=== PATIENT | male | born 1960 | race Caucasian/White ===

== ENCOUNTER 2017-11-02 20:44 | Inpatient (IN) | payer OTHER, MEDICAID ==
[~2017-11-02] VITALS: Ht 175.3 cm; Wt 122.5 kg
[2017-11-02] MEDS ORDERED: ZOLPIDEM TARTRATE 10 MG TABLET PO PRN (22:45)
[2017-11-03 00:20] VITALS: BP 121/80
[2017-11-03] MEDS: LORazepam 2 MG TABLET PO PRN (06:41)
[2017-11-03] MEDS: HALOPERIDOL 5 MG TABLET PO PRN (06:41)
[2017-11-03] MEDS ORDERED: LOPERAMIDE HCL 2 MG CAPSULE PO PRN (07:30)
[2017-11-03] MEDS ORDERED: CloNIDine HCL 0.1 MG TABLET PO PRN (07:30)
[2017-11-03] MEDS ORDERED: MAG HYDROX/AL HYDROX/SIMETH ES 30 ML SUSPENSION UDCUP PO PRN (07:30)
[2017-11-03] MEDS ORDERED: ACETAMINOPHEN 325 MG TABLET PO PRN (07:30)
[2017-11-03] MEDS ORDERED: ONDANSETRON HCL 4 MG TABLET PO PRN (07:30)
[2017-11-03] MEDS ORDERED: BACITRACIN 28.4 GM OINTMENT TP PRN (07:30)
[2017-11-03] MEDS ORDERED: BENZOCAINE/MENTHOL LOZENGE MM PRN (07:30)
[2017-11-03] MEDS ORDERED: PETROLATUM,WHITE 71 GM JELLY TP PRN (07:30)
[2017-11-03] MEDS ORDERED: IBUPROFEN 600 MG TABLET PO PRN (07:30)
[2017-11-03] MEDS ORDERED: ALBUTEROL SULFATE HFA 90 MCG/PUFF 8 GM INHALER IH PRN (07:30)
[2017-11-03] MEDS ORDERED: MAGNESIUM HYDROXIDE SUSPENSION 30 ML UDCUP PO PRN (07:30)
[2017-11-03 08:11] VITALS: BP 121/77
[2017-11-03 08:26] LABS: BASOPHILS % (AUTO) 0.4 % (0.0-2.0); HEMATOCRIT 39.5 % (41-53); HEMOGLOBIN 13.5 g/dL (13.5-17.5); LYMPHOCYTES # (AUTO) 1.9 K/uL (1.0-4.8); LYMPHOCYTES % (AUTO) 29.6 % (22.0-44.0); MEAN CORPUSCULAR HEMOGLOBIN 30.8 pg (26.0-34.0); MEAN CORPUSCULAR HGB CONC 34.3 G/dL (31.0-37.0); MEAN CORPUSCULAR VOLUME 90 fL (80-100); MONOCYTES # (AUTO) 0.6 K/uL (0.1-1.0); MONOCYTES % (AUTO) 9.4 % (2.0-9.0); NEUTROPHILS # (AUTO) 3.6 K/uL (1.8-7.7); NEUTROPHILS % (AUTO) 57.6 % (40.0-70.0); PLATELET COUNT (AUTO) 282 K/uL (150-450); RED BLOOD CELL COUNT(AUTO) 4.39 MIL/uL (4.50-5.90); RED CELL DISTRIBUTION WIDTH 13.7 % (11.5-14.5)
[2017-11-03 08:43] LABS: HEMOGLOBIN A1C 6.1 % (4.5-6.2)
[2017-11-03] MEDS: OMEPRAZOLE 20 MG CAPSULE PO SCH (08:49)
[2017-11-03] MEDS: DOCUSATE SODIUM 100 MG CAPSULE PO SCH (08:50)
[2017-11-03] MEDS: NICOTINE 21 MG/24 HOUR PATCH TD SCH (08:51)
[2017-11-03 09:01] LABS: ALANINE AMINOTRANSFERASE 66 U/L (12-78); ALBUMIN 2.9 g/dL (3.4-5.0); ALKALINE PHOSPHATASE 57 U/L (46-116); ANION GAP 1 mmol/L (8-16); BILIRUBIN,TOTAL 0.2 mg/dL (0.1-1.0); CALCIUM, TOTAL 8.5 mg/dL (8.8-10.5); CARBON DIOXIDE 31 mmol/L (22-29); CHLORIDE 107 mmol/L (98-107); CHOL/HDL RATIO 6.6 (4.2-7.3); CHOLESTEROL 165 mg/dL (131-200); CREATININE 0.85 mg/dL (0.60-1.30); GLOMERULAR FILTR. RATE CALC > 60 mL/min (>60); GLUCOSE,RANDOM 106 mg/dL (70-110); HDL CHOLESTEROL 25 mg/dL (40-60); LDL CHOL (CALC.) 87 mg/dL (0-130); SODIUM SERUM 139 mmol/L (136-145); TOTAL PROTEIN, SERUM 6.5 g/dL (6.4-8.2); TRIGLYCERIDES 267 mg/dL (15-150); UREA NITROGEN, BLOOD 13 mg/dL (7-18)
[2017-11-03 10:05] LABS: ASPARTATE AMINOTRANSFERASE 44 U/L (15-37); FREE T4 (FREE THYROXINE) 0.89 ng/dL (0.76-1.46); THYROID STIMULATING HORMONE 1.86 uIU/mL (0.36-3.74)
[2017-11-03] MEDS: RisperiDONE 2 MG TABLET PO SCH (20:11)
[2017-11-04 00:46] VITALS: BP 129/77
[2017-11-04 08:30] VITALS: BP 134/64
[2017-11-04] MEDS: OMEGA-3/DHA/EPA/FISH OIL 1,000 MG CAPSULE PO SCH (10:00)
[2017-11-04] MEDS ORDERED: MAGNESIUM SULFATE 454 GM BOX TP PRN (10:00)
[2017-11-04] MEDS: NICOTINE 21 MG/24 HOUR PATCH TD SCH (10:00)
[2017-11-04] MEDS: RisperiDONE 2 MG TABLET PO SCH (10:59)
[2017-11-04] MEDS: DOCUSATE SODIUM 100 MG CAPSULE PO SCH (10:59)
[2017-11-04] MEDS: OMEPRAZOLE 20 MG CAPSULE PO SCH (10:59)
[2017-11-04 15:50] VITALS: BP 122/74
[2017-11-04 16:26] VITALS: BP 122/74
[2017-11-04] MEDS: DIVALPROEX SODIUM 500 MG DR TABLET PO SCH (16:31)
[2017-11-04] MEDS: RisperiDONE 3 MG TABLET PO SCH (16:31)
[2017-11-05 01:49] VITALS: BP 116/74
[2017-11-05] MEDS: NICOTINE 21 MG/24 HOUR PATCH TD SCH (09:00)
[2017-11-05] MEDS: OMEGA-3/DHA/EPA/FISH OIL 1,000 MG CAPSULE PO SCH (09:09)
[2017-11-05] MEDS: DOCUSATE SODIUM 100 MG CAPSULE PO SCH (09:09)
[2017-11-05] MEDS: DIVALPROEX SODIUM 500 MG DR TABLET PO SCH ×2 (09:09→17:10)
[2017-11-05] MEDS: CHOLECALCIFEROL (VIT D3) 1,000 UNITS TABLET PO SCH (09:10)
[2017-11-05] MEDS: RisperiDONE 3 MG TABLET PO SCH ×2 (09:10→17:10)
[2017-11-05] MEDS: FUROSEMIDE 20 MG TABLET PO SCH (09:10)
[2017-11-05] MEDS: OMEPRAZOLE 20 MG CAPSULE PO SCH (09:10)
[2017-11-05] MEDS: TERBINAFINE HCL 1% 30 GM CREAM TP SCH (09:11)
[2017-11-05 16:00] VITALS: BP 142/80
[2017-11-05] MEDS: LORazepam 2 MG TABLET PO PRN (20:49)
[2017-11-06 00:05] VITALS: BP 124/68
[2017-11-06] MEDS: DIVALPROEX SODIUM 500 MG DR TABLET PO SCH ×2 (08:25→17:07)
[2017-11-06] MEDS: FUROSEMIDE 20 MG TABLET PO SCH (08:25)
[2017-11-06] MEDS: DOCUSATE SODIUM 100 MG CAPSULE PO SCH (08:25)
[2017-11-06] MEDS: RisperiDONE 3 MG TABLET PO SCH ×2 (08:25→17:07)
[2017-11-06] MEDS: CHOLECALCIFEROL (VIT D3) 1,000 UNITS TABLET PO SCH (08:25)
[2017-11-06] MEDS: OMEGA-3/DHA/EPA/FISH OIL 1,000 MG CAPSULE PO SCH (08:25)
[2017-11-06] MEDS: OMEPRAZOLE 20 MG CAPSULE PO SCH (08:25)
[2017-11-06] MEDS: TERBINAFINE HCL 1% 30 GM CREAM TP SCH (09:00)
[2017-11-06] MEDS: NICOTINE 21 MG/24 HOUR PATCH TD SCH (09:00)
[2017-11-06 09:02] VITALS: BP 119/64
[2017-11-06 16:50] VITALS: BP 120/67
[2017-11-07] MEDS: RisperiDONE 3 MG TABLET PO SCH ×2 (09:00→17:00)
[2017-11-07] MEDS: NICOTINE 21 MG/24 HOUR PATCH TD SCH (09:00)
[2017-11-07] MEDS: FUROSEMIDE 20 MG TABLET PO SCH (09:00)
[2017-11-07] MEDS: TERBINAFINE HCL 1% 30 GM CREAM TP SCH (09:00)
[2017-11-07] MEDS: OMEPRAZOLE 20 MG CAPSULE PO SCH (09:00)
[2017-11-07] MEDS: CHOLECALCIFEROL (VIT D3) 1,000 UNITS TABLET PO SCH (09:00)
[2017-11-07] MEDS: DIVALPROEX SODIUM 500 MG DR TABLET PO SCH ×2 (09:00→17:00)
[2017-11-07] MEDS: OMEGA-3/DHA/EPA/FISH OIL 1,000 MG CAPSULE PO SCH (09:00)
[2017-11-07] MEDS: DOCUSATE SODIUM 100 MG CAPSULE PO SCH (09:00)
[2017-11-07 09:10] VITALS: BP 101/68
[2017-11-07 19:10] VITALS: BP 117/55
[2017-11-08 06:23] VITALS: BP 136/79
[2017-11-08] MEDS: FUROSEMIDE 20 MG TABLET PO SCH (09:00)
[2017-11-08] MEDS: DIVALPROEX SODIUM 500 MG DR TABLET PO SCH ×2 (09:00→16:55)
[2017-11-08] MEDS: CHOLECALCIFEROL (VIT D3) 1,000 UNITS TABLET PO SCH (09:00)
[2017-11-08] MEDS: OMEGA-3/DHA/EPA/FISH OIL 1,000 MG CAPSULE PO SCH (09:00)
[2017-11-08] MEDS: TERBINAFINE HCL 1% 30 GM CREAM TP SCH (09:00)
[2017-11-08] MEDS: OMEPRAZOLE 20 MG CAPSULE PO SCH (09:00)
[2017-11-08] MEDS: RisperiDONE 3 MG TABLET PO SCH ×2 (09:00→16:55)
[2017-11-08] MEDS: NICOTINE 21 MG/24 HOUR PATCH TD SCH (11:51)
[2017-11-08] MEDS: DOCUSATE SODIUM 100 MG CAPSULE PO SCH (11:55)
[2017-11-08] MEDS: HALOPERIDOL 5 MG TABLET PO PRN (17:04)
[2017-11-08 17:51] VITALS: BP 132/64
[2017-11-09 03:50] VITALS: BP 133/72
[2017-11-09 08:42] VITALS: BP 115/87
[2017-11-09] MEDS: DOCUSATE SODIUM 100 MG CAPSULE PO SCH (09:01)
[2017-11-09] MEDS: FUROSEMIDE 20 MG TABLET PO SCH (09:01)
[2017-11-09] MEDS: OMEGA-3/DHA/EPA/FISH OIL 1,000 MG CAPSULE PO SCH (09:01)
[2017-11-09] MEDS: DIVALPROEX SODIUM 500 MG DR TABLET PO SCH ×2 (09:01→16:32)
[2017-11-09] MEDS: RisperiDONE 3 MG TABLET PO SCH ×2 (09:01→16:32)
[2017-11-09] MEDS: OMEPRAZOLE 20 MG CAPSULE PO SCH (09:01)
[2017-11-09] MEDS: CHOLECALCIFEROL (VIT D3) 1,000 UNITS TABLET PO SCH (09:01)
[2017-11-09] MEDS: TERBINAFINE HCL 1% 30 GM CREAM TP SCH (09:02)
[2017-11-09] MEDS: NICOTINE 21 MG/24 HOUR PATCH TD SCH (09:02)
[2017-11-09 16:40] VITALS: BP 132/87
[2017-11-10] MEDS: DIVALPROEX SODIUM 500 MG DR TABLET PO SCH ×2 (09:00→16:04)
[2017-11-10] MEDS: OMEGA-3/DHA/EPA/FISH OIL 1,000 MG CAPSULE PO SCH (09:00)
[2017-11-10] MEDS: OMEPRAZOLE 20 MG CAPSULE PO SCH (09:00)
[2017-11-10] MEDS: TERBINAFINE HCL 1% 30 GM CREAM TP SCH (09:00)
[2017-11-10] MEDS: FUROSEMIDE 20 MG TABLET PO SCH (09:00)
[2017-11-10] MEDS: DOCUSATE SODIUM 100 MG CAPSULE PO SCH (09:00)
[2017-11-10] MEDS: RisperiDONE 3 MG TABLET PO SCH ×2 (09:00→16:04)
[2017-11-10] MEDS: NICOTINE 21 MG/24 HOUR PATCH TD SCH (09:00)
[2017-11-10] MEDS: CHOLECALCIFEROL (VIT D3) 1,000 UNITS TABLET PO SCH (09:00)
[2017-11-11 01:45] VITALS: BP 129/80
[2017-11-11 08:05] VITALS: BP 127/70
[2017-11-11] MEDS: CHOLECALCIFEROL (VIT D3) 1,000 UNITS TABLET PO SCH (10:31)
[2017-11-11] MEDS: RisperiDONE 3 MG TABLET PO SCH ×2 (10:31→16:32)
[2017-11-11] MEDS: FUROSEMIDE 20 MG TABLET PO SCH (10:31)
[2017-11-11] MEDS: OMEGA-3/DHA/EPA/FISH OIL 1,000 MG CAPSULE PO SCH (10:31)
[2017-11-11] MEDS: OMEPRAZOLE 20 MG CAPSULE PO SCH (10:31)
[2017-11-11] MEDS: DIVALPROEX SODIUM 500 MG DR TABLET PO SCH ×2 (10:31→16:32)
[2017-11-11] MEDS: TERBINAFINE HCL 1% 30 GM CREAM TP SCH (10:33)
[2017-11-11] MEDS: MULTIVITAMINS, THERAPEUTIC TABLET PO SCH (10:33)
[2017-11-11 16:41] VITALS: BP 154/91
[2017-11-11 18:14] LABS: GLUCOMETER DEV NAME(LOC) 3EI B; GLUCOSE,POINT OF CARE 207 MG/DL (70-110)
[2017-11-12 08:05] VITALS: BP 137/81
[2017-11-12] MEDS: DIVALPROEX SODIUM 500 MG DR TABLET PO SCH ×2 (09:14→17:03)
[2017-11-12] MEDS: MULTIVITAMINS, THERAPEUTIC TABLET PO SCH (09:14)
[2017-11-12] MEDS: OMEPRAZOLE 20 MG CAPSULE PO SCH (09:14)
[2017-11-12] MEDS: RisperiDONE 3 MG TABLET PO SCH ×2 (09:14→17:03)
[2017-11-12] MEDS: FUROSEMIDE 20 MG TABLET PO SCH (09:14)
[2017-11-12] MEDS: CHOLECALCIFEROL (VIT D3) 1,000 UNITS TABLET PO SCH (09:14)
[2017-11-12] MEDS: TERBINAFINE HCL 1% 30 GM CREAM TP SCH (09:15)
[2017-11-12] MEDS: OMEGA-3/DHA/EPA/FISH OIL 1,000 MG CAPSULE PO SCH (09:15)
[2017-11-12 17:02] VITALS: BP 122/76
[2017-11-13] MEDS: MULTIVITAMINS, THERAPEUTIC TABLET PO SCH (08:29)
[2017-11-13] MEDS: DIVALPROEX SODIUM 500 MG DR TABLET PO SCH ×3 (08:29→16:33)
[2017-11-13] MEDS: TERBINAFINE HCL 1% 30 GM CREAM TP SCH (08:29)
[2017-11-13] MEDS: RisperiDONE 3 MG TABLET PO SCH ×3 (08:29→16:33)
[2017-11-13] MEDS: OMEPRAZOLE 20 MG CAPSULE PO SCH (08:29)
[2017-11-13] MEDS: OMEGA-3/DHA/EPA/FISH OIL 1,000 MG CAPSULE PO SCH (08:29)
[2017-11-13] MEDS: CHOLECALCIFEROL (VIT D3) 1,000 UNITS TABLET PO SCH (08:29)
[2017-11-13] MEDS: FUROSEMIDE 20 MG TABLET PO SCH (08:29)
[2017-11-13 09:06] VITALS: BP 113/62
[2017-11-13] MEDS: LORazepam 2 MG TABLET PO PRN (23:03)
[2017-11-13] MEDS: HALOPERIDOL 5 MG TABLET PO PRN (23:03)
[2017-11-14 01:04] VITALS: BP 121/69
[2017-11-14 08:01] VITALS: BP 131/74
[2017-11-14] MEDS: OMEGA-3/DHA/EPA/FISH OIL 1,000 MG CAPSULE PO SCH (08:17)
[2017-11-14] MEDS: FUROSEMIDE 20 MG TABLET PO SCH (08:17)
[2017-11-14] MEDS: DIVALPROEX SODIUM 500 MG DR TABLET PO SCH ×2 (08:17→16:51)
[2017-11-14] MEDS: OMEPRAZOLE 20 MG CAPSULE PO SCH (08:18)
[2017-11-14] MEDS: MULTIVITAMINS, THERAPEUTIC TABLET PO SCH (08:18)
[2017-11-14] MEDS: CHOLECALCIFEROL (VIT D3) 1,000 UNITS TABLET PO SCH (08:18)
[2017-11-14] MEDS: RisperiDONE 3 MG TABLET PO SCH ×2 (08:18→16:51)
[2017-11-14] MEDS ORDERED: DIVA-78 PO (10:46)
[2017-11-14] MEDS ORDERED: RISP3 PO (10:48)
[2017-11-14] MEDS ORDERED: MULT-1239 PO (10:54)
[2017-11-14] MEDS ORDERED: FURO20 PO (10:54)
[2017-11-14] MEDS ORDERED: OMEP20 PO (10:55)
[2017-11-14] MEDS ORDERED: OMEG-50 PO (10:55)
[2017-11-14] MEDS ORDERED: TERB30CR TP (10:56)
[2017-11-14] MEDS: TERBINAFINE HCL 1% 30 GM CREAM TP SCH (12:21)
[2017-11-14 16:52] VITALS: BP 128/86
== END 2017-11-14 19:30 | disposition home or self-care (01) | DRG 885 ==
LOC: B2X 22:36 → B2S 11-03 17:20 → 3EI 11-04 16:59 → 3EX 11-13 14:33
PROVIDERS: ADMIT Psychiatry & Neurology Psychiatry; ATTEND Psychiatry & Neurology Psychiatry
DX: F25.1 Schizoaffective disorder, depressive type (principal); R45.851 Suicidal ideations; E66.9 Obesity, unspecified; E78.1 Pure hyperglyceridemia; E83.51 Hypocalcemia; F17.200 Nicotine dependence, unspecified, uncomplicated; G47.00 Insomnia, unspecified; J44.9 Chronic obstructive pulmonary disease, unspecified; K21.9 Gastro-esophageal reflux disease without esophagitis; K59.00 Constipation, unspecified; S90.821A Blister (nonthermal), right foot, initial encounter; F41.9 Anxiety disorder, unspecified; S90.822A Blister (nonthermal), left foot, initial encounter; Z91.14 Patient's other noncompliance with medication regimen; Z91.19 Patient's noncompliance with other medical treatment and regimen; Z56.0 Unemployment, unspecified; Z79.899 Other long term (current) drug therapy
CPT/HCPCS: 82306; 83036; 84439; 84443

== ENCOUNTER 2017-11-27 22:45 | Inpatient (IN) | payer OTHER, MEDICAID ==
[~2017-11-27] VITALS: Ht 175.3 cm; Wt 109.1 kg
[~2017-11-27 22:45] MED LIST: DIVA-78 PO; FURO20 PO; MULT-1239 PO; OMEG-50 PO; OMEP20 PO; RISP3 PO; TERB30CR TP
[2017-11-27 23:19] LABS: BASOPHILS % (AUTO) 0.3 % (0.0-2.0); EOSINOPHILS % (AUTO) 0.5 % (1.0-6.0); HEMATOCRIT 45.7 % (41-53); HEMOGLOBIN 15.7 g/dL (13.5-17.5); LYMPHOCYTES # (AUTO) 1.4 K/uL (1.0-4.8); LYMPHOCYTES % (AUTO) 11.8 % (22.0-44.0); MEAN CORPUSCULAR HEMOGLOBIN 30.3 pg (26.0-34.0); MEAN CORPUSCULAR HGB CONC 34.4 G/dL (31.0-37.0); MEAN CORPUSCULAR VOLUME 88 fL (80-100); MONOCYTES # (AUTO) 0.8 K/uL (0.1-1.0); MONOCYTES % (AUTO) 6.7 % (2.0-9.0); NEUTROPHILS # (AUTO) 9.4 K/uL (1.8-7.7); NEUTROPHILS % (AUTO) 80.7 % (40.0-70.0); PLATELET COUNT (AUTO) 346 K/uL (150-450); RED BLOOD CELL COUNT(AUTO) 5.17 MIL/uL (4.50-5.90); RED CELL DISTRIBUTION WIDTH 13.5 % (11.5-14.5)
[2017-11-27 23:23] LABS: ANION GAP 15 mmol/L (8-16); CALCIUM, TOTAL 9.7 mg/dL (8.8-10.5); CARBON DIOXIDE 22 mmol/L (22-29); CHLORIDE 107 mmol/L (98-107); CREATININE 1.19 mg/dL (0.60-1.30); GLOMERULAR FILTR. RATE CALC > 60 mL/min (>60); GLUCOSE,RANDOM 111 mg/dL (70-110); POTASSIUM 3.7 mmol/L (3.5-5.1); SODIUM SERUM 144 mmol/L (136-145); UREA NITROGEN, BLOOD 27 mg/dL (7-18)
[2017-11-27 23:29] LABS: ALANINE AMINOTRANSFERASE 47 U/L (12-78); ALBUMIN 3.9 g/dL (3.4-5.0); ALKALINE PHOSPHATASE 63 U/L (46-116); ASPARTATE AMINOTRANSFERASE 35 U/L (15-37); BILIRUBIN,TOTAL 0.8 mg/dL (0.1-1.0); TOTAL PROTEIN, SERUM 8.4 g/dL (6.4-8.2); VALPROIC ACID 4 mcg/mL (50-100)
[2017-11-28 03:16] VITALS: BP 119/72
[2017-11-28 09:14] VITALS: BP 134/72
[2017-11-28] MEDS ORDERED: MAG HYDROX/AL HYDROX/SIMETH ES 30 ML SUSPENSION UDCUP PO PRN (20:00)
[2017-11-28] MEDS ORDERED: PETROLATUM,WHITE 71 GM JELLY TP PRN (20:00)
[2017-11-28] MEDS ORDERED: BENZOCAINE/MENTHOL LOZENGE MM PRN (20:00)
[2017-11-28] MEDS ORDERED: MAGNESIUM HYDROXIDE SUSPENSION 30 ML UDCUP PO PRN (20:00)
[2017-11-28] MEDS ORDERED: ACETAMINOPHEN 325 MG TABLET PO PRN (20:00)
[2017-11-28] MEDS ORDERED: BACITRACIN 28.4 GM OINTMENT TP PRN (20:00)
[2017-11-28] MEDS ORDERED: IBUPROFEN 600 MG TABLET PO PRN (20:00)
[2017-11-28] MEDS ORDERED: ONDANSETRON HCL 4 MG TABLET PO PRN (20:00)
[2017-11-28] MEDS ORDERED: ALBUTEROL SULFATE HFA 90 MCG/PUFF 8 GM INHALER IH PRN (20:00)
[2017-11-28] MEDS ORDERED: CloNIDine HCL 0.1 MG TABLET PO PRN (20:00)
[2017-11-28] MEDS ORDERED: LOPERAMIDE HCL 2 MG CAPSULE PO PRN (20:00)
[2017-11-29 00:45] VITALS: BP 126/81
[2017-11-29 08:30] VITALS: BP 137/97
[2017-11-29] MEDS: OMEPRAZOLE 20 MG CAPSULE PO SCH (08:57)
[2017-11-29] MEDS: DOCUSATE SODIUM 100 MG CAPSULE PO SCH (08:57)
[2017-11-29] MEDS: RisperiDONE 3 MG TABLET PO SCH ×2 (08:57→16:22)
[2017-11-29] MEDS: FUROSEMIDE 20 MG TABLET PO SCH (08:57)
[2017-11-29] MEDS: DIVALPROEX SODIUM 500 MG DR TABLET PO SCH ×2 (08:57→16:22)
[2017-11-29] MEDS: OMEGA-3/DHA/EPA/FISH OIL 1,000 MG CAPSULE PO SCH (08:57)
[2017-11-29] MEDS: MULTIVITAMINS WITH MINERALS, THERAPEUTIC TABLET PO SCH (08:58)
[2017-11-29] MEDS ORDERED: TERBINAFINE HCL 1% 30 GM CREAM TP SCH (09:00)
[2017-11-29] MEDS: HALOPERIDOL 5 MG TABLET PO PRN (15:44)
[2017-11-29 16:14] VITALS: BP 144/70
[2017-11-30] MEDS: LORazepam 2 MG TABLET PO PRN (00:10)
[2017-11-30] MEDS: ZOLPIDEM TARTRATE 10 MG TABLET PO PRN (00:10)
[2017-11-30 06:32] LABS: BAND NEUTROPHILS % (MANUAL) 0 % (0-5)
[2017-11-30 06:45] LABS: HEMATOCRIT 43.5 % (41-53); HEMOGLOBIN 14.9 g/dL (13.5-17.5); MEAN CORPUSCULAR HEMOGLOBIN 30.2 pg (26.0-34.0); MEAN CORPUSCULAR HGB CONC 34.3 G/dL (31.0-37.0); MEAN CORPUSCULAR VOLUME 88 fL (80-100); PLATELET COUNT (AUTO) 277 K/uL (150-450); RED BLOOD CELL COUNT(AUTO) 4.95 MIL/uL (4.50-5.90); RED CELL DISTRIBUTION WIDTH 13.4 % (11.5-14.5)
[2017-11-30 07:05] LABS: ANION GAP 11 mmol/L (8-16); CALCIUM, TOTAL 9.4 mg/dL (8.8-10.5); CARBON DIOXIDE 27 mmol/L (22-29); CHLORIDE 106 mmol/L (98-107); CHOL/HDL RATIO 6.7 (4.2-7.3); CHOLESTEROL 161 mg/dL (131-200); CREATININE 1.13 mg/dL (0.60-1.30); GLOMERULAR FILTR. RATE CALC > 60 mL/min (>60); GLUCOSE,RANDOM 102 mg/dL (70-110); HDL CHOLESTEROL 24 mg/dL (40-60); LDL CHOL (CALC.) 102 mg/dL (0-130); PHOSPHORUS 4.5 mg/dL (2.5-4.9); POTASSIUM 3.5 mmol/L (3.5-5.1); SODIUM SERUM 144 mmol/L (136-145); TRIGLYCERIDES 177 mg/dL (15-150); UREA NITROGEN, BLOOD 26 mg/dL (7-18)
[2017-11-30 07:44] LABS: EOSINOPHILS % (MANUAL) 2 % (1-6); LYMPHOCYTES % (MANUAL) 7 % (22-44); MONOCYTES % (MANUAL) 4 % (2-9); SEGMENTED NEUTROPHILS % 87 % (40-70)
[2017-11-30] MEDS: DIVALPROEX SODIUM 500 MG DR TABLET PO SCH ×2 (08:17→16:14)
[2017-11-30] MEDS: FUROSEMIDE 20 MG TABLET PO SCH (08:17)
[2017-11-30] MEDS: OMEGA-3/DHA/EPA/FISH OIL 1,000 MG CAPSULE PO SCH (08:17)
[2017-11-30] MEDS: CHOLECALCIFEROL (VIT D3) 1,000 UNITS TABLET PO SCH (08:18)
[2017-11-30] MEDS: OMEPRAZOLE 20 MG CAPSULE PO SCH (08:18)
[2017-11-30] MEDS: DOCUSATE SODIUM 100 MG CAPSULE PO SCH (08:18)
[2017-11-30] MEDS: RisperiDONE 3 MG TABLET PO SCH ×2 (08:18→16:14)
[2017-11-30] MEDS: MULTIVITAMINS WITH MINERALS, THERAPEUTIC TABLET PO SCH (08:18)
[2017-11-30 08:38] VITALS: BP 152/97
[2017-11-30] MEDS ORDERED: LORazepam 2 MG/ML VIAL IM ONE (12:00)
[2017-11-30] MEDS ORDERED: HALOPERIDOL LACTATE 5 MG/ML VIAL IM ONE (12:00)
[2017-11-30] MEDS ORDERED: DiphenhydrAMINE HCL 50 MG/ML VIAL IM ONE (12:00)
[2017-12-01 02:29] VITALS: BP 100/71
[2017-12-01] MEDS: LORazepam 2 MG TABLET PO PRN ×2 (02:35→08:26)
[2017-12-01] MEDS: FUROSEMIDE 20 MG TABLET PO SCH (08:21)
[2017-12-01] MEDS: DIVALPROEX SODIUM 500 MG DR TABLET PO SCH ×2 (08:21→16:16)
[2017-12-01] MEDS: RisperiDONE 3 MG TABLET PO SCH ×2 (08:21→16:16)
[2017-12-01 08:22] VITALS: BP 117/71
[2017-12-01] MEDS: HALOPERIDOL 5 MG TABLET PO PRN (08:26)
[2017-12-01] MEDS: MULTIVITAMINS WITH MINERALS, THERAPEUTIC TABLET PO SCH (09:00)
[2017-12-01] MEDS: CHOLECALCIFEROL (VIT D3) 1,000 UNITS TABLET PO SCH (09:00)
[2017-12-01] MEDS: OMEGA-3/DHA/EPA/FISH OIL 1,000 MG CAPSULE PO SCH (09:00)
[2017-12-01] MEDS: OMEPRAZOLE 20 MG CAPSULE PO SCH (09:00)
[2017-12-01] MEDS: DOCUSATE SODIUM 100 MG CAPSULE PO SCH (09:00)
[2017-12-02] MEDS: FUROSEMIDE 20 MG TABLET PO SCH (08:35)
[2017-12-02] MEDS: DIVALPROEX SODIUM 500 MG DR TABLET PO SCH ×2 (08:35→17:00)
[2017-12-02] MEDS: RisperiDONE 3 MG TABLET PO SCH ×2 (08:35→17:00)
[2017-12-02] MEDS: OMEPRAZOLE 20 MG CAPSULE PO SCH (08:36)
[2017-12-02] MEDS: OMEGA-3/DHA/EPA/FISH OIL 1,000 MG CAPSULE PO SCH (08:41)
[2017-12-02] MEDS: MULTIVITAMINS WITH MINERALS, THERAPEUTIC TABLET PO SCH (08:41)
[2017-12-02] MEDS: CHOLECALCIFEROL (VIT D3) 1,000 UNITS TABLET PO SCH (08:41)
[2017-12-02] MEDS: DOCUSATE SODIUM 100 MG CAPSULE PO SCH (08:42)
[2017-12-03] MEDS: LORazepam 2 MG TABLET PO PRN ×2 (02:24→23:39)
[2017-12-03] MEDS: HALOPERIDOL 5 MG TABLET PO PRN (02:24)
[2017-12-03] MEDS: DIVALPROEX SODIUM 500 MG DR TABLET PO SCH ×2 (08:40→16:45)
[2017-12-03] MEDS: DOCUSATE SODIUM 100 MG CAPSULE PO SCH (08:40)
[2017-12-03] MEDS: MULTIVITAMINS WITH MINERALS, THERAPEUTIC TABLET PO SCH (08:41)
[2017-12-03] MEDS: OMEPRAZOLE 20 MG CAPSULE PO SCH (08:41)
[2017-12-03] MEDS: FUROSEMIDE 20 MG TABLET PO SCH (08:41)
[2017-12-03] MEDS: RisperiDONE 3 MG TABLET PO SCH ×2 (08:41→16:45)
[2017-12-03] MEDS: CHOLECALCIFEROL (VIT D3) 1,000 UNITS TABLET PO SCH (08:41)
[2017-12-03] MEDS: OMEGA-3/DHA/EPA/FISH OIL 1,000 MG CAPSULE PO SCH (08:41)
[2017-12-03 09:37] VITALS: BP 144/80
[2017-12-03] MEDS: ZOLPIDEM TARTRATE 10 MG TABLET PO PRN (23:39)
[2017-12-04] MEDS: DOCUSATE SODIUM 100 MG CAPSULE PO SCH (09:05)
[2017-12-04] MEDS: DIVALPROEX SODIUM 500 MG DR TABLET PO SCH ×2 (09:05→16:55)
[2017-12-04] MEDS: OMEPRAZOLE 20 MG CAPSULE PO SCH (09:06)
[2017-12-04] MEDS: OMEGA-3/DHA/EPA/FISH OIL 1,000 MG CAPSULE PO SCH (09:06)
[2017-12-04] MEDS: MULTIVITAMINS WITH MINERALS, THERAPEUTIC TABLET PO SCH (09:06)
[2017-12-04] MEDS: FUROSEMIDE 20 MG TABLET PO SCH (09:06)
[2017-12-04] MEDS: CHOLECALCIFEROL (VIT D3) 1,000 UNITS TABLET PO SCH (09:07)
[2017-12-04] MEDS: RisperiDONE 3 MG TABLET PO SCH ×2 (09:23→16:55)
[2017-12-04 09:40] VITALS: BP 144/74
[2017-12-04 19:03] VITALS: BP 142/81
[2017-12-04] MEDS: HALOPERIDOL 5 MG TABLET PO PRN (19:41)
[2017-12-04] MEDS: LORazepam 2 MG TABLET PO PRN (19:41)
[2017-12-05 03:55] VITALS: BP 127/99
[2017-12-05 08:16] VITALS: BP 121/75
[2017-12-05] MEDS: CHOLECALCIFEROL (VIT D3) 1,000 UNITS TABLET PO SCH (08:39)
[2017-12-05] MEDS: MULTIVITAMINS WITH MINERALS, THERAPEUTIC TABLET PO SCH (08:39)
[2017-12-05] MEDS: OMEPRAZOLE 20 MG CAPSULE PO SCH (08:39)
[2017-12-05] MEDS: DIVALPROEX SODIUM 500 MG DR TABLET PO SCH ×2 (08:39→16:23)
[2017-12-05] MEDS: RisperiDONE 3 MG TABLET PO SCH ×2 (08:39→16:23)
[2017-12-05] MEDS: DOCUSATE SODIUM 100 MG CAPSULE PO SCH (08:39)
[2017-12-05] MEDS: FUROSEMIDE 20 MG TABLET PO SCH (08:39)
[2017-12-05] MEDS: OMEGA-3/DHA/EPA/FISH OIL 1,000 MG CAPSULE PO SCH (08:39)
[2017-12-05 19:43] VITALS: BP 165/83
[2017-12-06 08:05] VITALS: BP 127/78
[2017-12-06] MEDS: CHOLECALCIFEROL (VIT D3) 1,000 UNITS TABLET PO SCH (09:00)
[2017-12-06] MEDS: FUROSEMIDE 20 MG TABLET PO SCH (09:00)
[2017-12-06] MEDS: OMEPRAZOLE 20 MG CAPSULE PO SCH (09:00)
[2017-12-06] MEDS: OMEGA-3/DHA/EPA/FISH OIL 1,000 MG CAPSULE PO SCH (09:00)
[2017-12-06] MEDS: DOCUSATE SODIUM 100 MG CAPSULE PO SCH (09:00)
[2017-12-06] MEDS: RisperiDONE 3 MG TABLET PO SCH ×3 (09:00→17:00)
[2017-12-06] MEDS: MULTIVITAMINS WITH MINERALS, THERAPEUTIC TABLET PO SCH (09:00)
[2017-12-06] MEDS: DIVALPROEX SODIUM 500 MG DR TABLET PO SCH ×3 (09:00→17:00)
[2017-12-06] MEDS: HALOPERIDOL 5 MG TABLET PO PRN (16:40)
[2017-12-06] MEDS ORDERED: LORazepam 2 MG/ML VIAL IM ONE (17:15)
[2017-12-06] MEDS ORDERED: DiphenhydrAMINE HCL 50 MG/ML VIAL IM ONE (17:15)
[2017-12-06] MEDS ORDERED: HALOPERIDOL LACTATE 5 MG/ML VIAL IM ONE (17:15)
[2017-12-06] MEDS ORDERED: DiphenhydrAMINE HCL 50 MG/ML VIAL ONE (17:17)
[2017-12-06] MEDS ORDERED: LORazepam 2 MG/ML VIAL ONE (17:17)
[2017-12-06] MEDS ORDERED: HALOPERIDOL LACTATE 5 MG/ML VIAL ONE (17:17)
[2017-12-07 05:49] VITALS: BP 127/93
[2017-12-07 08:30] VITALS: BP 127/95
[2017-12-07] MEDS: DIVALPROEX SODIUM 500 MG DR TABLET PO SCH ×2 (09:00→16:21)
[2017-12-07] MEDS: FUROSEMIDE 20 MG TABLET PO SCH (09:00)
[2017-12-07] MEDS: MULTIVITAMINS WITH MINERALS, THERAPEUTIC TABLET PO SCH (09:00)
[2017-12-07] MEDS: OMEPRAZOLE 20 MG CAPSULE PO SCH (09:00)
[2017-12-07] MEDS: CHOLECALCIFEROL (VIT D3) 1,000 UNITS TABLET PO SCH (09:00)
[2017-12-07] MEDS: DOCUSATE SODIUM 100 MG CAPSULE PO SCH (09:00)
[2017-12-07] MEDS: RisperiDONE 3 MG TABLET PO SCH ×2 (09:00→16:21)
[2017-12-07] MEDS: OMEGA-3/DHA/EPA/FISH OIL 1,000 MG CAPSULE PO SCH (09:00)
[2017-12-08 08:25] VITALS: BP 114/57
[2017-12-08] MEDS: OMEGA-3/DHA/EPA/FISH OIL 1,000 MG CAPSULE PO SCH (09:21)
[2017-12-08] MEDS: DOCUSATE SODIUM 100 MG CAPSULE PO SCH (09:21)
[2017-12-08] MEDS: OMEPRAZOLE 20 MG CAPSULE PO SCH (09:22)
[2017-12-08] MEDS: DIVALPROEX SODIUM 500 MG DR TABLET PO SCH ×2 (09:22→16:50)
[2017-12-08] MEDS: MULTIVITAMINS WITH MINERALS, THERAPEUTIC TABLET PO SCH (09:22)
[2017-12-08] MEDS: FUROSEMIDE 20 MG TABLET PO SCH (09:22)
[2017-12-08] MEDS: CHOLECALCIFEROL (VIT D3) 1,000 UNITS TABLET PO SCH (09:22)
[2017-12-08] MEDS: RisperiDONE 3 MG TABLET PO SCH ×2 (09:22→16:50)
[2017-12-08 19:06] VITALS: BP 106/62
[2017-12-09] MEDS: FUROSEMIDE 20 MG TABLET PO SCH (08:08)
[2017-12-09] MEDS: MULTIVITAMINS WITH MINERALS, THERAPEUTIC TABLET PO SCH (08:08)
[2017-12-09] MEDS: OMEPRAZOLE 20 MG CAPSULE PO SCH (08:08)
[2017-12-09] MEDS: OMEGA-3/DHA/EPA/FISH OIL 1,000 MG CAPSULE PO SCH (08:09)
[2017-12-09] MEDS: RisperiDONE 3 MG TABLET PO SCH ×2 (08:09→16:46)
[2017-12-09] MEDS: DIVALPROEX SODIUM 500 MG DR TABLET PO SCH ×2 (08:09→16:46)
[2017-12-09] MEDS: CHOLECALCIFEROL (VIT D3) 1,000 UNITS TABLET PO SCH (08:09)
[2017-12-09] MEDS: DOCUSATE SODIUM 100 MG CAPSULE PO SCH (08:09)
[2017-12-09 08:14] VITALS: BP 134/88
[2017-12-09 16:35] VITALS: BP 127/73
[2017-12-10 08:00] VITALS: BP 128/80
[2017-12-10] MEDS: OMEGA-3/DHA/EPA/FISH OIL 1,000 MG CAPSULE PO SCH (08:34)
[2017-12-10] MEDS: RisperiDONE 3 MG TABLET PO SCH ×2 (08:34→16:50)
[2017-12-10] MEDS: MULTIVITAMINS WITH MINERALS, THERAPEUTIC TABLET PO SCH (08:34)
[2017-12-10] MEDS: DIVALPROEX SODIUM 500 MG DR TABLET PO SCH ×2 (08:35→16:50)
[2017-12-10] MEDS: FUROSEMIDE 20 MG TABLET PO SCH (08:35)
[2017-12-10] MEDS: DOCUSATE SODIUM 100 MG CAPSULE PO SCH (08:35)
[2017-12-10] MEDS: CHOLECALCIFEROL (VIT D3) 1,000 UNITS TABLET PO SCH (08:35)
[2017-12-10] MEDS: OMEPRAZOLE 20 MG CAPSULE PO SCH (08:35)
[2017-12-10 18:44] VITALS: BP 124/79
[2017-12-11 08:05] VITALS: BP 137/77
[2017-12-11] MEDS: DIVALPROEX SODIUM 500 MG DR TABLET PO SCH ×2 (09:00→16:46)
[2017-12-11] MEDS: OMEGA-3/DHA/EPA/FISH OIL 1,000 MG CAPSULE PO SCH (09:00)
[2017-12-11] MEDS: FUROSEMIDE 20 MG TABLET PO SCH (09:00)
[2017-12-11] MEDS: DOCUSATE SODIUM 100 MG CAPSULE PO SCH (09:00)
[2017-12-11] MEDS: OMEPRAZOLE 20 MG CAPSULE PO SCH (09:13)
[2017-12-11] MEDS: RisperiDONE 3 MG TABLET PO SCH ×2 (09:13→16:46)
[2017-12-11] MEDS: MULTIVITAMINS WITH MINERALS, THERAPEUTIC TABLET PO SCH (09:14)
[2017-12-11] MEDS: CHOLECALCIFEROL (VIT D3) 1,000 UNITS TABLET PO SCH (09:14)
[2017-12-11 16:22] VITALS: BP 100/64
[2017-12-12 08:36] VITALS: BP 99/58
[2017-12-12] MEDS: MULTIVITAMINS WITH MINERALS, THERAPEUTIC TABLET PO SCH (08:46)
[2017-12-12] MEDS: OMEGA-3/DHA/EPA/FISH OIL 1,000 MG CAPSULE PO SCH (08:46)
[2017-12-12] MEDS: DOCUSATE SODIUM 100 MG CAPSULE PO SCH (08:46)
[2017-12-12] MEDS: RisperiDONE 3 MG TABLET PO SCH ×2 (08:46→17:34)
[2017-12-12] MEDS: CHOLECALCIFEROL (VIT D3) 1,000 UNITS TABLET PO SCH (08:46)
[2017-12-12] MEDS: OMEPRAZOLE 20 MG CAPSULE PO SCH (08:47)
[2017-12-12] MEDS: DIVALPROEX SODIUM 500 MG DR TABLET PO SCH ×2 (08:47→17:34)
[2017-12-12] MEDS: FUROSEMIDE 20 MG TABLET PO SCH (08:47)
[2017-12-12 16:14] VITALS: BP 104/55
[2017-12-13] MEDS: MULTIVITAMINS WITH MINERALS, THERAPEUTIC TABLET PO SCH (08:41)
[2017-12-13] MEDS: DOCUSATE SODIUM 100 MG CAPSULE PO SCH (08:41)
[2017-12-13] MEDS: CHOLECALCIFEROL (VIT D3) 1,000 UNITS TABLET PO SCH (08:41)
[2017-12-13] MEDS: OMEGA-3/DHA/EPA/FISH OIL 1,000 MG CAPSULE PO SCH (08:41)
[2017-12-13] MEDS: RisperiDONE 4 MG TABLET PO SCH ×2 (08:42→16:05)
[2017-12-13] MEDS: FUROSEMIDE 20 MG TABLET PO SCH (08:43)
[2017-12-13] MEDS: OMEPRAZOLE 20 MG CAPSULE PO SCH (08:43)
[2017-12-13] MEDS: DIVALPROEX SODIUM 500 MG DR TABLET PO SCH ×2 (08:43→16:04)
[2017-12-13 09:25] VITALS: BP 104/66
[2017-12-13 18:00] VITALS: BP 108/70
[2017-12-14] MEDS: OMEGA-3/DHA/EPA/FISH OIL 1,000 MG CAPSULE PO SCH (08:35)
[2017-12-14] MEDS: OMEPRAZOLE 20 MG CAPSULE PO SCH (08:35)
[2017-12-14] MEDS: MULTIVITAMINS WITH MINERALS, THERAPEUTIC TABLET PO SCH (08:35)
[2017-12-14] MEDS: CHOLECALCIFEROL (VIT D3) 1,000 UNITS TABLET PO SCH (08:35)
[2017-12-14] MEDS: DOCUSATE SODIUM 100 MG CAPSULE PO SCH (08:35)
[2017-12-14] MEDS: RisperiDONE 4 MG TABLET PO SCH ×2 (08:35→16:23)
[2017-12-14] MEDS: DIVALPROEX SODIUM 500 MG DR TABLET PO SCH ×2 (08:36→16:23)
[2017-12-14] MEDS: FUROSEMIDE 20 MG TABLET PO SCH (08:36)
[2017-12-14 08:45] VITALS: BP 133/78
[2017-12-14 17:20] VITALS: BP 116/74
[2017-12-15] MEDS: OMEGA-3/DHA/EPA/FISH OIL 1,000 MG CAPSULE PO SCH (08:44)
[2017-12-15] MEDS: FUROSEMIDE 20 MG TABLET PO SCH (08:44)
[2017-12-15] MEDS: DOCUSATE SODIUM 100 MG CAPSULE PO SCH (08:44)
[2017-12-15] MEDS: DIVALPROEX SODIUM 500 MG DR TABLET PO SCH ×2 (08:44→17:04)
[2017-12-15] MEDS: RisperiDONE 4 MG TABLET PO SCH ×2 (08:44→17:04)
[2017-12-15] MEDS: OMEPRAZOLE 20 MG CAPSULE PO SCH (08:45)
[2017-12-15] MEDS: CHOLECALCIFEROL (VIT D3) 1,000 UNITS TABLET PO SCH (08:45)
[2017-12-15] MEDS: MULTIVITAMINS WITH MINERALS, THERAPEUTIC TABLET PO SCH (08:45)
[2017-12-15 09:27] VITALS: BP 107/58
[2017-12-15 17:49] VITALS: BP 144/95
[2017-12-16 08:05] VITALS: BP 112/72
[2017-12-16] MEDS: MULTIVITAMINS WITH MINERALS, THERAPEUTIC TABLET PO SCH (08:24)
[2017-12-16] MEDS: DOCUSATE SODIUM 100 MG CAPSULE PO SCH (08:24)
[2017-12-16] MEDS: FUROSEMIDE 20 MG TABLET PO SCH (08:24)
[2017-12-16] MEDS: CHOLECALCIFEROL (VIT D3) 1,000 UNITS TABLET PO SCH (08:24)
[2017-12-16] MEDS: RisperiDONE 4 MG TABLET PO SCH ×2 (08:24→16:24)
[2017-12-16] MEDS: DIVALPROEX SODIUM 500 MG DR TABLET PO SCH ×3 (08:24→16:24)
[2017-12-16] MEDS: OMEPRAZOLE 20 MG CAPSULE PO SCH (08:24)
[2017-12-16] MEDS: OMEGA-3/DHA/EPA/FISH OIL 1,000 MG CAPSULE PO SCH (08:24)
[2017-12-16 16:56] VITALS: BP 110/76
[2017-12-17 08:08] VITALS: BP 103/66
[2017-12-17] MEDS: DIVALPROEX SODIUM 500 MG DR TABLET PO SCH ×3 (08:25→15:56)
[2017-12-17] MEDS: OMEPRAZOLE 20 MG CAPSULE PO SCH (08:25)
[2017-12-17] MEDS: RisperiDONE 4 MG TABLET PO SCH ×2 (08:25→15:56)
[2017-12-17] MEDS: OMEGA-3/DHA/EPA/FISH OIL 1,000 MG CAPSULE PO SCH (08:25)
[2017-12-17] MEDS: DOCUSATE SODIUM 100 MG CAPSULE PO SCH (08:25)
[2017-12-17] MEDS: CHOLECALCIFEROL (VIT D3) 1,000 UNITS TABLET PO SCH (08:25)
[2017-12-17] MEDS: FUROSEMIDE 20 MG TABLET PO SCH (08:25)
[2017-12-17] MEDS: MULTIVITAMINS WITH MINERALS, THERAPEUTIC TABLET PO SCH (08:25)
[2017-12-17 16:03] VITALS: BP 121/75
[2017-12-18] MEDS: DOCUSATE SODIUM 100 MG CAPSULE PO SCH (08:36)
[2017-12-18] MEDS: RisperiDONE 4 MG TABLET PO SCH ×2 (08:36→17:09)
[2017-12-18] MEDS: OMEPRAZOLE 20 MG CAPSULE PO SCH (08:36)
[2017-12-18] MEDS: OMEGA-3/DHA/EPA/FISH OIL 1,000 MG CAPSULE PO SCH (08:36)
[2017-12-18] MEDS: CHOLECALCIFEROL (VIT D3) 1,000 UNITS TABLET PO SCH (08:36)
[2017-12-18] MEDS: FUROSEMIDE 20 MG TABLET PO SCH (08:36)
[2017-12-18] MEDS: DIVALPROEX SODIUM 500 MG DR TABLET PO SCH ×3 (08:36→17:09)
[2017-12-18] MEDS: MULTIVITAMINS WITH MINERALS, THERAPEUTIC TABLET PO SCH (08:36)
[2017-12-18 09:01] VITALS: BP 115/71
[2017-12-18 18:15] VITALS: BP 132/67
[2017-12-19 08:00] VITALS: BP 108/61
[2017-12-19] MEDS: DIVALPROEX SODIUM 500 MG DR TABLET PO SCH ×3 (08:12→16:30)
[2017-12-19] MEDS: OMEPRAZOLE 20 MG CAPSULE PO SCH (08:12)
[2017-12-19] MEDS: FUROSEMIDE 20 MG TABLET PO SCH (08:12)
[2017-12-19] MEDS: MULTIVITAMINS WITH MINERALS, THERAPEUTIC TABLET PO SCH (08:12)
[2017-12-19] MEDS: OMEGA-3/DHA/EPA/FISH OIL 1,000 MG CAPSULE PO SCH (08:12)
[2017-12-19] MEDS: CHOLECALCIFEROL (VIT D3) 1,000 UNITS TABLET PO SCH (08:12)
[2017-12-19] MEDS: DOCUSATE SODIUM 100 MG CAPSULE PO SCH (08:12)
[2017-12-19] MEDS: RisperiDONE 4 MG TABLET PO SCH ×2 (08:13→16:30)
[2017-12-19 16:56] VITALS: BP 113/71
[2017-12-20 08:05] VITALS: BP 110/70
[2017-12-20] MEDS: CHOLECALCIFEROL (VIT D3) 1,000 UNITS TABLET PO SCH (09:01)
[2017-12-20] MEDS: DOCUSATE SODIUM 100 MG CAPSULE PO SCH (09:01)
[2017-12-20] MEDS: OMEPRAZOLE 20 MG CAPSULE PO SCH (09:01)
[2017-12-20] MEDS: DIVALPROEX SODIUM 500 MG DR TABLET PO SCH ×3 (09:01→16:16)
[2017-12-20] MEDS: MULTIVITAMINS WITH MINERALS, THERAPEUTIC TABLET PO SCH (09:01)
[2017-12-20] MEDS: FUROSEMIDE 20 MG TABLET PO SCH (09:02)
[2017-12-20] MEDS: OMEGA-3/DHA/EPA/FISH OIL 1,000 MG CAPSULE PO SCH (09:02)
[2017-12-20] MEDS: RisperiDONE 4 MG TABLET PO SCH ×2 (09:02→16:16)
[2017-12-20 17:21] VITALS: BP 98/57
[2017-12-21] MEDS: OMEPRAZOLE 20 MG CAPSULE PO SCH (08:25)
[2017-12-21] MEDS: CHOLECALCIFEROL (VIT D3) 1,000 UNITS TABLET PO SCH (08:25)
[2017-12-21] MEDS: DOCUSATE SODIUM 100 MG CAPSULE PO SCH (08:25)
[2017-12-21] MEDS: DIVALPROEX SODIUM 500 MG DR TABLET PO SCH (08:25)
[2017-12-21] MEDS: MULTIVITAMINS WITH MINERALS, THERAPEUTIC TABLET PO SCH (08:25)
[2017-12-21] MEDS: OMEGA-3/DHA/EPA/FISH OIL 1,000 MG CAPSULE PO SCH (08:27)
[2017-12-21] MEDS: FUROSEMIDE 20 MG TABLET PO SCH (08:27)
[2017-12-21] MEDS: RisperiDONE 4 MG TABLET PO SCH (08:28)
[2017-12-21] MEDS ORDERED: VITAD1000 PO (09:02)
[2017-12-21] MEDS ORDERED: DSS100 PO (09:03)
== END 2017-12-21 10:45 | disposition home or self-care (01) | DRG 885 ==
LOC: EMS 22:46 → 3EX 11-28 01:00
PROVIDERS: ADMIT Psychiatry & Neurology Psychiatry; ATTEND Psychiatry & Neurology Psychiatry
DX: F20.0 Paranoid schizophrenia (principal); R45.851 Suicidal ideations; E66.9 Obesity, unspecified; E78.1 Pure hyperglyceridemia; E83.51 Hypocalcemia; F17.200 Nicotine dependence, unspecified, uncomplicated; G47.00 Insomnia, unspecified; J44.9 Chronic obstructive pulmonary disease, unspecified; K21.9 Gastro-esophageal reflux disease without esophagitis; M79.89 Other specified soft tissue disorders; K59.00 Constipation, unspecified; Z91.14 Patient's other noncompliance with medication regimen; Z68.35 Body mass index [BMI] 35.0-35.9, adult; Z79.899 Other long term (current) drug therapy; Z71.6 Tobacco abuse counseling
CPT/HCPCS: 83735; 84100; 85007; 87081; 99285; G0480; J1200; J1630; J2060

== ENCOUNTER 2017-12-26 11:27 | Emergency (ER) | payer OTHER ==
[~2017-12-26] VITALS: Ht 175.3 cm; Wt 110.6 kg
[~2017-12-26 11:27] MED LIST changes: +DSS100 PO; -TERB30CR TP; +VITAD1000 PO
[2017-12-26 12:31] LABS: BASOPHILS % (AUTO) 0.5 % (0.0-2.0); EOSINOPHILS % (AUTO) 4.1 % (1.0-6.0); HEMATOCRIT 40.7 % (41-53); HEMOGLOBIN 14.3 g/dL (13.5-17.5); LYMPHOCYTES # (AUTO) 1.6 K/uL (1.0-4.8); LYMPHOCYTES % (AUTO) 28.5 % (22.0-44.0); MEAN CORPUSCULAR HEMOGLOBIN 30.2 pg (26.0-34.0); MEAN CORPUSCULAR VOLUME 86 fL (80-100); MONOCYTES # (AUTO) 0.6 K/uL (0.1-1.0); MONOCYTES % (AUTO) 10.5 % (2.0-9.0); NEUTROPHILS # (AUTO) 3.3 K/uL (1.8-7.7); NEUTROPHILS % (AUTO) 56.4 % (40.0-70.0); PLATELET COUNT (AUTO) 207 K/uL (150-450); RED BLOOD CELL COUNT(AUTO) 4.72 MIL/uL (4.50-5.90); RED CELL DISTRIBUTION WIDTH 13.3 % (11.5-14.5)
[2017-12-26 12:39] LABS: ANION GAP 6 mmol/L (8-16); CALCIUM, TOTAL 8.6 mg/dL (8.8-10.5); CARBON DIOXIDE 31 mmol/L (22-29); CHLORIDE 103 mmol/L (98-107); CREATININE 1.04 mg/dL (0.60-1.30); GLOMERULAR FILTR. RATE CALC > 60 mL/min (>60); GLUCOSE,RANDOM 105 mg/dL (70-110); POTASSIUM 3.5 mmol/L (3.5-5.1); SODIUM SERUM 140 mmol/L (136-145); UREA NITROGEN, BLOOD 14 mg/dL (7-18)
[2017-12-26 12:45] LABS: ALANINE AMINOTRANSFERASE 47 U/L (12-78); ALBUMIN 2.9 g/dL (3.4-5.0); ALKALINE PHOSPHATASE 47 U/L (46-116); ASPARTATE AMINOTRANSFERASE 25 U/L (15-37); BILIRUBIN,TOTAL 0.3 mg/dL (0.1-1.0); TOTAL PROTEIN, SERUM 6.7 g/dL (6.4-8.2)
[2017-12-26 13:39] LABS: AMPHET/METH SCREEN,URINE NEGATIVE (NEGATIVE); BARBITURATE SCREEN, URINE NEGATIVE (NEGATIVE); BENZODIAZEPINES SCREEN,URINE NEGATIVE (NEGATIVE); CANNABINOID SCREEN,URINE NEGATIVE (NEGATIVE); COCAINE SCREEN,URINE NEGATIVE (NEGATIVE); METHADONE SCREEN, URINE NEGATIVE (NEGATIVE); OPIATE SCREEN,URINE NEGATIVE (NEGATIVE)
[2017-12-26 13:40] LABS: PHENCYCLIDINE SCREEN,URINE NEGATIVE (NEGATIVE)
[2017-12-26] MEDS ORDERED: RisperiDONE 1 MG TABLET PO ONE (14:00)
[2017-12-26] MEDS ORDERED: DIVALPROEX SODIUM 500 MG ER TABLET PO ONE (14:00)
[2017-12-26] MEDS ORDERED: LORazepam 2 MG TABLET PO ONE (14:00)
[2017-12-26 14:12] VITALS: BP 114/69
== END 2017-12-26 16:15 | disposition home or self-care (01) ==
LOC: EMS 11:28
DX: F41.9 Anxiety disorder, unspecified (principal); F20.0 Paranoid schizophrenia; F17.210 Nicotine dependence, cigarettes, uncomplicated
CPT/HCPCS: 36415; 80053; 80307; 85025; 99284; 99406; G0480